=== PATIENT | male | born 1955 | race Caucasian/White ===

== ENCOUNTER 2024-07-15 07:56 | Outpatient (RCR) | payer OTHER, SELFPAY | END 2024-07-15 23:59 | disposition home or self-care (01) | LOC: ROT 07:56 | PROVIDERS: ATTENDING PHYSICIAN Orthopaedic Surgery; FAMILY PHYSICIAN Internal Medicine | DX: Z47.89 Encounter for other orthopedic aftercare (principal); M72.0 Palmar fascial fibromatosis [Dupuytren]; Z73.6 Limitation of activities due to disability | CPT/HCPCS: 97010; 97110; 97140; 97166; 97535; 97760 ==

== ENCOUNTER 2024-08-15 09:52 | Outpatient (RCR) | payer OTHER, SELFPAY | END 2024-08-15 23:59 | disposition home or self-care (01) | LOC: ROT 09:52 | PROVIDERS: ATTENDING PHYSICIAN Orthopaedic Surgery; FAMILY PHYSICIAN Internal Medicine | DX: Z47.89 Encounter for other orthopedic aftercare (principal); M72.0 Palmar fascial fibromatosis [Dupuytren]; Z73.6 Limitation of activities due to disability | CPT/HCPCS: 97010; 97022; 97110; 97140 ==

== ENCOUNTER 2024-09-10 15:17 | Outpatient (RCR) | payer OTHER, SELFPAY | END 2024-09-16 13:35 | disposition home or self-care (01) | LOC: ROT 15:17 | PROVIDERS: ATTENDING PHYSICIAN Orthopaedic Surgery; FAMILY PHYSICIAN Internal Medicine | DX: Z47.89 Encounter for other orthopedic aftercare (principal); M72.0 Palmar fascial fibromatosis [Dupuytren]; Z73.6 Limitation of activities due to disability | CPT/HCPCS: 97018; 97110 ==

== ENCOUNTER 2024-10-18 07:36 | Emergency (ER) | payer OTHER, SELFPAY ==
[2024-10-18 07:46] VITALS: BP 149/80
--- NOTE | 2024-10-18 08:26 | ED.GENMED ---
History of Present Illness
General
Chief Complaint: Blood Pressure Problem
Time Seen by Provider: 10/18/24 08:26
History of Present Illness
History of Present Illness:
TIME OF INITIAL ENCOUNTER: 8:30 AM
HPI: The patient presents due to high blood pressure concerns. He does not take blood pressure medication. As high as 206 SBP at home. Has had BP readings in 160s over last several months. No symptoms. He states he had blood work recently that
was unremarkable.
EXAM:
GENERAL: Well appearing in no distress, he is hypertensive.
HEENT: Moist oral mucosa
CARDIOVASCULAR: No murmurs, normal heart rate, regular rhythm, No chest wall tenderness
PULMONARY: No respiratory distress, breath sounds are clear and equal
ABDOMEN: Soft with no peritoneal signs, no tenderness
NEUROLOGIC: Excellent strength all extremities, no coordination deficits
PSYCHIATRIC: Appropriate mental status, normal insight and judgement
EXTREMITIES: Nontender, no edema, moves all extremities equally
SKIN: No rash, no lesions
NUMBER AND COMPLEXITY OF PROBLEMS ADDRESSED AT THE ENCOUNTER
� Chronic conditions affecting care: No significant past medical history
� Acute Exacerbation and/or Progression of Chronic Illness: This is an acute problem
� Differential Diagnosis includes: New diagnosis of high blood pressure, uncontrolled hypertension
AMOUNT AND/OR COMPLEXITY OF DATA TO BE REVIEWED AND ANALYZED
� I performed an independent evaluation of and my interpretation is:
EKG:
CT:
X-rays:
Laboratory Studies:
Other:
� Review of other/old records: The patient had a right inguinal hernia repair in 2020
� Clinical information was obtained by an independent historian: Spoke to family member at bedside
� Prescriptions/Medications Considered but not given:
� Further testing considered but not performed: Considered blood work however the patient states he had recent blood work that was normal 4 months ago. He is asymptomatic, no clear indication for repeat blood work.
RISK OF COMPLICATIONS AND/OR MORBIDITY OR MORTALITY OF PATIENT MANAGEMENT
� Social determinants of health affecting care: Lives at home
� Discussion with other providers:
� Escalation of care including admission/observation vs risk of discharge considered: The patient has had multiple blood pressure readings that were elevated over the last several months and today the systolic was over 200. He
is asymptomatic. Will start losartan 50 mg daily. He states that he is able to get in to see his primary care doctor for reassessment. I did offer and consider doing blood work again today however the patient declines.
ANY OTHER UPDATES:
Past History
Past History
ED Past Medical History: None
ED Past Surgical History: None
Social History
Tobacco: Non-smoker
Phy Exam
Physical Exam
Physical Exam:
See HPI
Course
Orders/Labs/Results
Orders:
Orders
10/18/24 09:07
Losartan [Cozaar] 50 mg PO NOW STA
Vital Signs
Initial and Last Documented VS:
Initial Vital Signs
Temp Pulse Resp BP Pulse Ox
36.8 C 71 18 149/80 99
10/18/24 07:46 10/18/24 07:46 10/18/24 07:46 10/18/24 07:46 10/18/24 07:46
Last Documented Vital Signs
Temp Pulse Resp BP Pulse Ox
36.8 C 53 18 154/91 100
10/18/24 07:46 10/18/24 09:14 10/18/24 07:46 10/18/24 09:14 10/18/24 08:41
*Critical Care Note
Total Time (30-74mins, 75-104mins- exclusive of procedures): Not Applicable
ED Attending Note
-
Portions of this chart may have been created with voice recognition software.� Occasional wrong word or��sound alike� substitutions may have occurred due to the inherent limitations of voice recognition software.
Discharge Plan
Departure
Patient Disposition: Home (Routine Discharge)
Date of Disposition: 10/18/24
Time of Disposition: 09:07
Patient with high blood pressure during this ER visit?: Yes
Discharge Problem:
High blood pressure
Instructions: High Blood Pressure (DC), BLOOD PRESSURE
Prescriptions:
New
losartan 50 mg tablet
50 mg PO DAILY Qty: 30 0RF
No Action
hydrocodone-acetaminophen 1 TABLET tablet
1 - 2 tab PO Q4HPRN PRN (Reason: moderate to severe pain) Qty: 16 0RF
Activity Restrictions/Additional Instructions:
Follow-up with your primary care doctor for reassessment in the next few days. Your blood pressures here have been in the 140-150 range.
Interventions
Interventions:
*Risk Screen - Suicide Last Done: 10/18/24 07:46
*General Assessment Last Done: 10/18/24 07:46
*Neglect/Abuse Screening Last Done: 10/18/24 08:45
ED- Fall Risk Assessment Last Done: 10/18/24 08:38
*ED COVID-19 Vaccine History Last Done: 10/18/24 07:46
ED- Cardiac Assessment Last Done: 10/18/24 08:38
ED- Neurological Assessment Last Done: 10/18/24 08:38
ED- Pulmonary Assessment Last Done: 10/18/24 08:38
Discharge Date and Time
Print Language: LATVIAN
[2024-10-18 08:38] VITALS: BMI 23.3
[2024-10-18 08:41] VITALS: BP 149/89
[2024-10-18 09:00] VITALS: BP 154/91
[2024-10-18] MEDS: COZAAR 50 MG PO (09:14)
[2024-10-18 09:30] VITALS: BP 162/92
== END 2024-10-18 10:01 | disposition home or self-care (01) ==
LOC: EMR 07:36
PROVIDERS: EMERGENCY PHYSICIAN Emergency Medicine; FAMILY PHYSICIAN Internal Medicine
DX: R03.0 Elevated blood-pressure reading, without diagnosis of hypertension (principal); Z79.899 Other long term (current) drug therapy
CPT/HCPCS: 99282